=== PATIENT | male | born 1990 | race Caucasian/White ===

== ENCOUNTER 2016-10-06 02:32 | Emergency (ER) | payer BC, MEDICAID, OTHER, SELFPAY ==
[~2016-10-06] VITALS: Ht 177.8 cm; Wt 113.4 kg
[2016-10-06] MEDS ORDERED: PERCOCET 5MG/325MG TAB PO ONE (04:45)
[2016-10-06] MEDS ORDERED: OXYCODONE/APAP 5MG/325MG(BULK FOR ED) 1 TABLET PO ONE (05:30)
[2016-10-06] MEDS ORDERED: PERC5TAB6 PO (05:30)
[2016-10-06 06:24] VITALS: BP 131/60
--- NOTE | 2016-10-06 08:02 | REP ---
Clinical: Trauma. Technique: AP, lateral, bilateral oblique views of the right ankle. Findings: Minimally displaced distal fibular metaphyseal fracture with overlying soft tissue swelling noted. No other fracture or dislocation. Ankle mortise grossly intact. Impression: Lateral malleolus/distal fibular metaphyseal fracture with mild overlying soft tissue swelling Signed by Melquiades Buckner MD 10/06/2016 07:54 A
--- NOTE | 2016-10-06 08:03 | REP ---
Clinical: Trauma. Technique: AP and lateral views of the right knee. Comparison: 09/14/2010. Findings: No acute fracture or dislocation. Skeletal structures, joint spaces, and surrounding soft tissues appear relatively normal. No definite effusion. Impression: Normal, stable right knee radiographs. No acute fracture or dislocation identified Signed by Melquiades Buckner MD 10/06/2016 07:55 A
== END 2016-10-06 06:28 | disposition home or self-care (01) ==
LOC: M ED 03:42
DX: S82.61XA Displaced fracture of lateral malleolus of right fibula, initial encounter for closed fracture (principal); X50.0XXA Overexertion from strenuous movement or load, initial encounter; Y92.018 Other place in single-family (private) house as the place of occurrence of the external cause; Y93.72 Activity, wrestling; Y99.8 Other external cause status

== ENCOUNTER → 2018-03-28 | Outpatient (REF) | payer BC | LOC: M SFHCLERA 16:20 | DX: L73.8 Other specified follicular disorders (principal) | CPT/HCPCS: 87186 ==

== ENCOUNTER → 2019-09-29 | Outpatient (REF) | payer BC ==
[~2019-09-29] MED LIST: PERC5TAB12 PO
== END ==
LOC: M SFHCLERA 17:26
PROVIDERS: ATTEND Nurse Practitioner Family
DX: R06.02 Shortness of breath (principal)

== ENCOUNTER → 2019-09-29 | Outpatient (CLI) | payer BC ==
--- NOTE | 2019-09-29 19:28 | REP ---
HISTORY: Dyspnea. COMPARISON: None. There is a subtle opacity in the posterior lung varner on the lateral view and a subtle opacity silhouetting out the right CP angle. The lung varner are otherwise clear and the heart is not enlarged. The osseous structures are normal. IMPRESSION: Possible developing right lower lobe pneumonia. Electronically Signed by Bebo Holman DO 09/29/2019 07:36 P
== END ==
LOC: M LRY 17:43
PROVIDERS: ATTEND Nurse Practitioner Family
DX: R91.8 Other nonspecific abnormal finding of lung field (principal); R05 Cough; R06.02 Shortness of breath

== ENCOUNTER → 2022-04-25 | Outpatient (CLI) | payer BC | LOC: M SLEEP HO 12:28 | PROVIDERS: ATTEND Physician Assistant | DX: G47.10 Hypersomnia, unspecified (principal) ==